=== PATIENT | female | born 1950 | race Caucasian/White ===

== ENCOUNTER → 2016-11-07 | Outpatient (CLI) | payer BC | END | disposition home or self-care (01) | LOC: ORTHO 02:06 | DX: M17.12 Unilateral primary osteoarthritis, left knee (principal) ==

== ENCOUNTER → 2018-12-07 | Outpatient (CLI) | payer MEDICARE | END | disposition home or self-care (01) | LOC: ORTHO 02:44 | DX: M85.842 Other specified disorders of bone density and structure, left hand (principal) ==

== ENCOUNTER → 2018-12-11 | Outpatient (CLI) | payer MEDICARE | END | disposition home or self-care (01) | LOC: CT 14:00 | DX: M79.602 Pain in left arm (principal) ==